=== PATIENT | male | born 1970 | race Caucasian/White ===

== ENCOUNTER 2016-12-19 04:28 | Emergency (ER) | payer SELFPAY ==
[~2016-12-19] VITALS: Ht 175.3 cm; Wt 100.0 kg
[~2016-12-19 04:28] MED LIST: BACT800T5 PO; POLY10O EACH EYE
[2016-12-19 04:32] VITALS: BP 141/69; PULSE 112; RESP 20; TEMP 97.7; O2SAT 95
[2016-12-19] MEDS ORDERED: MOBI15TA PO (05:35)
[2016-12-19] MEDS ORDERED: CYCL1TAB29 PO (05:35)
[2016-12-19] MEDS ORDERED: ORPHENADRINE INJ 60 MG/2 ML AMP IM ONE (05:45)
[2016-12-19] MEDS ORDERED: KETOROLAC TROMETHAMINE 60 MG/2 ML (IM) VIAL IM ONE (05:45)
--- NOTE | 2016-12-19 05:49 | PD ---
HPI Chief Complaint: Back/ Neck Pain or Injury Time Seen by Provider: 05:43 Travel History International Travel<30 days: No Contact w/Intl Traveler<30days: No Traveled to known affect area: No History of Present Illness HPI 46-year-old white male presents to emergency department by EMS. He states that he has had worsening back pain over the past week. He been seen at [facility] initially what had began to bother him. He states that he was seen yesterday. He had been prescribed prednisone, another medication and Percocet. He just ran of his Percocet today. He states that he is currently homeless. He's been living in the [facility]. He has no place to go. He denies any atraumatic event. He states that the pain started earlier this past week and then has progressively worsened. It is across his lower back and into his left leg. He denies any acute bowel or bladder changes. He has had a history of neck and back problems in the past. He states that is been unemployed and homeless now for nearly 2 years. [facility] Past Medical History Narrative Medical Chronic neck and back pain, history of substance abuse, homelessness Depression: Yes Diminished Hearing: No Musculoskeletal: Yes (HX RUPTURED CERVICAL DISC,L4,L5) Immunizations Current: Yes Tetanus Vaccination: < 5 Years Past Surgical History Surgical History: No Previous Surgery Social History Alcohol Use: No Tobacco Use: Yes (2PPD) Substance Use: Yes Allergies-Medications (Allergen,Severity, Reaction): Coded Allergies: Ibuprofen (Verified Allergy, Severe, Hives, 12/19/16) Motrin (Verified Allergy, Severe, HIVES, SWELLING, 12/19/16) Reported Meds & Prescriptions Reported Meds & Active Scripts Active Flexeril (Cyclobenzaprine HCl) 10 Mg Tab 10 Mg PO TID Mobic (Meloxicam) 15 Mg Tab 15 Mg PO DAILY Review of Systems Except as stated in HPI: all other systems reviewed are Neg Physical Exam Narrative GENERAL: This is a well-nourished, well-developed patient, in no apparent distress. SKIN: No rashes, ecchymoses or lesions. Warm and dry. HEAD: Atraumatic. Normocephalic. EYES: PERRL, EOMI, no discharge or injection. No scleral icterus. EARS: Clear NOSE: Nasal turbinates appear normal. THROAT: Mucosa pink and moist. Airway patent. NECK: Trachea midline. supple, moves head freely. LUNGS: Clear to auscultation. CV: Regular in rhythm. ABDOMEN: Soft nontender. EXT: No clubbing cyanosis or edema. Back: The patient complains of diffuse paralumbar tenderness. He is able to sit up in bed at 90. Deep tendon reflexes are 2+ bilaterally. He has positive straight leg raise bilaterally at 70. He has intact sensation with good distal pulses. Data Data Last Documented VS Vital Signs Date Time Temp Pulse Resp B/P Pulse Ox O2 Delivery O2 Flow Rate FiO2 12/19/16 04:32 97.7 112 20 141/69 95 Room Air Orders Orphenadrine Inj (Norflex Inj) (12/19/16 05:45) Ketorolac Inj (Toradol Inj) (12/19/16 05:45) MDM Medical Decision Making Medical Screen Exam Complete: Yes Emergency Medical Condition: Yes Medical Record Reviewed: Yes Differential Diagnosis MDM: High Differential diagnoses: AAA,Fracture, sprain, strain, HNP, nerve or vascular injury, epidural abscess, pilonidal cyst, pyelonephritis, UTI, nephrolithiasis, ureterolithiasis Narrative Course Review the medical record indicates that he has had Motrin in the past although he reports an allergy to ibuprofen. The patient will be given Toradol 60 mg IM and Norflex 60 mg IM. He will be given prescriptions for meloxicam and Flexeril. He is advised to follow-up with a primary care doctor in next 2-3 days. This is acute exacerbation of chronic neck pain Diagnosis Primary Impression: Acute exacerbation of chronic low back pain Patient Instructions: General Instructions Additional Instructions: Rest. Ice for the next 3 days followed by heat . Flexeril and meloxicam. Follow-up with a primary care doctor in one week. Return to the ER for emergencies. Med/Other Pt SpecificInfo: Prescription(s) given Scripts Cyclobenzaprine (Flexeril)10 Mg Tab10 Mg PO TID #30 TAB Prov:Mary Ellen Patel MD 12/19/16 Meloxicam (Mobic)15 Mg Tab15 Mg PO DAILY #30 TAB Prov:Mary Eleln Patel MD 12/19/16 Disposition: 01 DISCHARGE HOME Condition: Stable [facility] Dec 19, 2016 05:49
== END 2016-12-19 06:51 | disposition home or self-care (01) ==
LOC: NEPB 04:28
DX: M54.5 Low back pain (principal); G89.29 Other chronic pain; M54.2 Cervicalgia; F17.210 Nicotine dependence, cigarettes, uncomplicated; F19.10 Other psychoactive substance abuse, uncomplicated; Z59.0 Homelessness
CPT/HCPCS: 96372; 99283; J1885; J2360

== ENCOUNTER 2017-05-12 17:26 | Emergency (ER) | payer SELFPAY ==
[~2017-05-12] VITALS: Ht 175.3 cm; Wt 92.0 kg
[~2017-05-12 17:26] MED LIST changes: -BACT800T5 PO; +CYCL1TAB29 PO; +MOBI15TA PO; -POLY10O EACH EYE
[2017-05-12 17:27] VITALS: BP 172/88; PULSE 93; RESP 16; TEMP 98.2; O2SAT 99
--- NOTE | 2017-05-12 17:53 | PD ---
HPI Chief Complaint: Complaint Time Seen by Provider: 17:52 Travel History International Travel<30 days: No Contact w/Intl Traveler<30days: No Traveled to known affect area: No History of Present Illness HPI 47-year-old male presents to the emergency Department with complaint of a "wound " on his penis that he noticed this morning. Reports the lesion is painless. He denies penile pain, swelling. Denies testicular pain or swelling. Denies penile drainage, dysuria. Denies abdominal pain, nausea, vomiting. Denies fever. Has not taken any medications or tried any treatments to alleviate his symptoms. Reports one sexual partner in the last 6 months. Unknown exposure to STDs or STI. Allergies to ibuprofen and Motrin. Has no other medical complaints. No other modifying factors or associated signs and symptoms. PFSH Past Medical History Medical History: Denies Significant Hx Depression: Yes Diminished Hearing: No Musculoskeletal: Yes (HX RUPTURED CERVICAL DISC,L4,L5) Immunizations Current: Yes Tetanus Vaccination: < 5 Years Influenza Vaccination: No Past Surgical History Surgical History: No Previous Surgery Social History Alcohol Use: No Tobacco Use: Yes (2PPD) Substance Use: No (pt denies) Allergies-Medications (Allergen,Severity, Reaction): Coded Allergies: Ibuprofen (Verified Allergy, Severe, Hives, 05/12/17) Motrin (Verified Allergy, Severe, HIVES, SWELLING, 05/12/17) Reported Meds & Prescriptions Reported Meds & Active Scripts Active Review of Systems Except as stated in HPI: all other systems reviewed are Neg Physical Exam Narrative GENERAL: Well-nourished, well-developed male patient, in no acute distress; afebrile, nontoxic-appearing SKIN: Warm and dry. HEAD: Atraumatic. Normocephalic. EYES: Pupils equal and round. ENT: Mucosa pink and moist. NECK: Trachea midline. No lymphadenopathy. CARDIOVASCULAR: Regular rate. RESPIRATORY: No accessory muscle use. GASTROINTESTINAL: Flat. GENITOURINARY: Exam done in the presence of a nurse. Circumcised. Scabbed lesion noted to the tip of the glans penis; without tenderness on palpation, without drainage; without erythema, edema. Testes descended bilaterally without evidence of rotation. No lesions or erythema. No urethral discharge. MUSCULOSKELETAL: No obvious deformities. No clubbing. No cyanosis. No edema. NEUROLOGICAL: Awake and alert. Oriented 3. No obvious cranial nerve deficits. Motor grossly within normal limits. Normal speech. Moves all extremities. 5/5 strength to all extremities. PSYCHIATRIC: Appropriate mood and affect; insight and judgment normal. Data Data Last Documented VS Vital Signs Date Time Temp Pulse Resp B/P Pulse Ox O2 Delivery O2 Flow Rate FiO2 05/12/17 17:27 98.2 93 16 172/88 99 Orders Penicillin G Benzathine Inj (Bicillin L- (05/12/17 18:00) Rapid Plasmin Reagin Screen (05/12/17 17:53) MDM Medical Decision Making Medical Screen Exam Complete: Yes Emergency Medical Condition: Yes Medical Record Reviewed: Yes Differential Diagnosis Genital herpes, syphilis, penile abrasion Narrative Course 47-year-old male physical exam consistent with lesion of the penis. The lesion is painless. Dr. Galindo, my attending physician, evaluated the patient and recommended treatment for syphilis. Penicillin 2.4 IM administered in the ER. RPR pending. Patient instructed to follow-up with health department for full panel of STD and HIV testing. Patient instructed to follow-up at the health department in one week, and again in 2 weeks, for repeat penicillin injections. Patient verbalizes understanding and agreement with treatment plan. Patient is medically cleared and stable for discharge. Discussed reasons to return to the emergency department. Instructed patient to follow up with primary care provider. Patient agrees with treatment plan. The patients vital signs are stable and the patient is stable for outpatient follow-up and treatment. Patient discharged home, stable and in no acute distress. Diagnosis Primary Impression: Lesion of penis Referrals: [facility] Phys[facility] Patient Instructions: General Instructions, Sexually Transmitted Diseases (ED) , Syphilis (ED) Additional Instructions: Follow-up at the health Department in one week, and again in two weeks, for Penicillin injections Avoid sexual activity until you follow up you are cleared by a health care provider Avoid sexual activity while genital sores exist Inform all sexual partners within the past 3-6 months that they need to be evaluated and treated Use condoms every time you have sex Follow-up with primary care provider Follow-up with the health department for full STD and HIV screening Return to the emergency department immediately with worsening of symptoms Med/Other Pt SpecificInfo: No Meds Exist/No RX given Disposition: DISCHARGE HOME Condition: Stable Arlen Kumar May 12, 2017 17:53
[2017-05-12] MEDS ORDERED: PENICILLIN G BENZATHINE 2,400,000 UNITS/4 ML SYRINGE IM ONE (18:00)
== END 2017-05-12 20:04 | disposition home or self-care (01) ==
LOC: NEPD 17:26
DX: L98.9 Disorder of the skin and subcutaneous tissue, unspecified (principal); F32.9 Major depressive disorder, single episode, unspecified; F17.200 Nicotine dependence, unspecified, uncomplicated; Z11.3 Encounter for screening for infections with a predominantly sexual mode of transmission
CPT/HCPCS: 86592; 96372; 99284; J0561

== ENCOUNTER 2018-05-10 19:30 | Emergency (ER) | payer SELFPAY ==
[~2018-05-10] VITALS: Ht 175.3 cm; Wt 90.9 kg
[2018-05-10 20:22] VITALS: BP 134/78; PULSE 92; RESP 16; TEMP 97.6; O2SAT 99
[2018-05-10] MEDS ORDERED: HYDR-3133 PO (21:33)
[2018-05-10] MEDS ORDERED: PRED5PAK PO (21:33)
--- NOTE | 2018-05-10 21:33 | PD ---
HPI Chief Complaint: Eye Problems/Injury Time Seen by Provider: 21:23 Travel History International Travel<30 days: No Contact w/Intl Traveler<30days: No Traveled to known affect area: No History of Present Illness HPI This is a 47-year-old male who presents to the emergency department with 1 week of green discharge from his eyes. He says he wakes up and his eyes are crusted over. His eyes are ultra itchy, constant, moderate severity with no associated blurry vision. This happened to him once before and it required multiple visits to the emergency department in order to clear it up. He also reports that he has 1 day of an itchy rash on both arms. 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 PFSH Past Medical History Medical History: Denies Significant Hx Depression: Yes Diminished Hearing: No Musculoskeletal: Yes (HX RUPTURED CERVICAL DISC,L4,L5) Psychiatric: Yes (PREVIOUS SUICIDE ATTEMPT) Immunizations Current: Yes Influenza Vaccination: No Social History Alcohol Use: No Tobacco Use: Yes (2PPD) Substance Use: No (pt denies) Allergies-Medications (Allergen,Severity, Reaction): Coded Allergies: ibuprofen (Unverified Allergy, Severe, HIVES, SWELLING, 05/10/18) Reported Meds & Prescriptions Reported Meds & Active Scripts Active Hydroxyzine HCl 25 Mg Tab 25 Mg PO QID PRN Prednisone (21) 5 mg tab Dose Pack (Prednisone) 5 Mg Dspk 5 Mg PO DIRECTED Review of Systems General / Constitutional: No: Fever, Chills Gastrointestinal: No: Nausea, Vomiting Physical Exam Narrative GENERAL: Well-appearing, no acute distress, nontoxic SKIN: Erythematous papular rash over the bilateral upper extremities. HEAD: Atraumatic. Normocephalic. Eyes: Mild conjunctival injection, yellow crusted discharge ENT: No nasal bleeding or discharge. Moist mucous membranes MUSCULOSKELETAL: No obvious deformities. No clubbing. No cyanosis. No edema. NEUROLOGICAL: Awake and alert. No obvious cranial nerve deficits. Motor grossly within normal limits. Normal speech. PSYCHIATRIC: Appropriate mood and affect; insight and judgment normal. Data Data Last Documented VS Vital Signs Date Time Temp Pulse Resp B/P (MAP) Pulse Ox O2 Delivery O2 Flow Rate FiO2 05/10/18 20:22 97.6 92 16 134/78 (96) 99 Orders Orders Erythromycin 0.5% Opth Oint (Ilotycin 0. (05/10/18 21:45) Ed Discharge Order (05/10/18 21:35) [facility] Medical Decision Making Medical Screen Exam Complete: Yes Emergency Medical Condition: Yes Differential Diagnosis Viral conjunctivitis, bacterial conjunctivitis, contact dermatitis, poison sherry dermatitis Narrative Course This is a 47-year-old male who presents to the emergency department with itchy eyes and discharge consistent with conjunctivitis. He also has a rash on both upper extremities which appears to be contact dermatitis. Patient will be treated with oral steroids, antihistamines and topical antibiotic for conjunctivitis. Diagnosis Primary Impression: Bilateral conjunctivitis Qualified Codes: H10.33 - Unspecified acute conjunctivitis, bilateral Additional Impression: Contact dermatitis Qualified Codes: L24.89 - Irritant contact dermatitis due to other agents Additional Instructions: If you develop worsening rash, fevers, chills, blurry vision or eye pain return to the emergency room. Med/Other Pt SpecificInfo: Prescription(s) given Scripts Hydroxyzine HCl (Hydroxyzine HCl) 25 Mg Tab 25 MG PO QID Y for ITCHING, #10 TAB 0 Refills Prov: Sayra Galindo MD 05/10/18 Prednisone (21) 5 mg tab Dose Pack (Prednisone (21) 5 mg tab Dose Pack) 5 Mg Dspk 5 MG PO DIRECTED for Inflammation, #1 DSPK 0 Refills Prov: Sayra Galindo MD 05/10/18 Disposition: 01 DISCHARGE HOME Condition: Stable Sayra Galindo MD May 10, 2018 21:33
[2018-05-10] MEDS ORDERED: ERYTHROMYCIN 0.5% OPTH OINT 3.5 GM TUBO EACH EYE ONE (21:45)
== END 2018-05-10 21:52 | disposition home or self-care (01) ==
LOC: NEPD 19:30
DX: H10.33 Unspecified acute conjunctivitis, bilateral (principal); L24.89 Irritant contact dermatitis due to other agents
CPT/HCPCS: 99283